=== PATIENT | male | born 1955 | race Caucasian/White ===

== ENCOUNTER 2024-08-13 09:09 | Emergency (ER) | payer MEDICARE ==
[~2024-08-13] VITALS: Ht 177.8 cm; Wt 116.6 kg
[2024-08-13] MEDS ORDERED: VERAPAMIL (09:59)
[2024-08-13] MEDS: IV NORMAL SALINE 1000 ML BAG IV ONE (10:06)
[2024-08-13 10:15] LABS: BASOPHILS # (AUTO) 0.1 K/UL (0.0-0.2); BASOPHILS % (AUTO) 0.4 % (0.0-2.0); EOSINOPHILS # (AUTO) 0.1 K/uL (0.0-0.7); EOSINOPHILS % (AUTO) 0.8 % (0.0-7.0); HEMATOCRIT 40.9 % (36.7-47.1); HEMOGLOBIN 13.8 g/dL (12.5-16.3); LYMPHOCYTES # (AUTO) 0.6 K/uL (0.8-4.8); LYMPHOCYTES % (AUTO) 5.2 % (20.5-51.5); MEAN CORPUSCULAR HGB CONC 34 g/dL (32.5-36.3); MEAN CORPUSCULAR VOLUME 88.8 fL (73.0-96.2); MONOCYTES # (AUTO) 0.4 K/uL (0.1-1.30); MONOCYTES % (AUTO) 3.3 % (0.0-11.0); NEUTROPHILS # (AUTO) 10.7 K/uL (1.8-8.9); NEUTROPHILS % (AUTO) 90.3 % (38.5-71.5); PLATELET COUNT (AUTO) 208 K/uL (152-348); RED CELL DISTRIBUTION WIDTH 14.3 % (12.1-16.2); WHITE BLOOD COUNT (AUTO) 11.9 K/uL (3.6-10.2)
[2024-08-13 10:19] LABS: DIFFERENTIAL COMMENT 1
[2024-08-13 10:22] LABS: CALCIUM 8.2 mg/dL (8.5-10.1); CARBON DIOXIDE 26 mmol/L (21-32); CHLORIDE 107 mmol/L (98-107); CREATININE 1.7 mg/dL (0.6-1.3); GLUCOSE 191 mg/dL (74-106); POTASSIUM 4.2 mmol/L (3.5-5.1); SODIUM SERUM 143 mmol/L (136-145); UREA NITROGEN, BLOOD 19 mg/dL (7-18)
[2024-08-13 10:31] LABS: ALANINE AMINOTRANSFERASE 40 U/L (16-63); ALBUMIN 3.4 g/dL (3.4-5.0); ALKALINE PHOSPHATASE 133 U/L (50-136); ASPARTATE AMINOTRANSFERASE 29 U/L (15-37); BILIRUBIN,DIRECT 0.1 mg/dL (0.0-0.2); BILIRUBIN,TOTAL 0.6 mg/dL (0.2-1.0); TOTAL PROTEIN, SERUM 7.1 g/dL (6.4-8.2)
[2024-08-13 12:47] VITALS: BP 109/67; O2SAT 99
== END 2024-08-13 12:48 | disposition home or self-care (01) ==
LOC: ER 09:09
DX: I95.9 Hypotension, unspecified (principal); E11.9 Type 2 diabetes mellitus without complications; R07.9 Chest pain, unspecified; I10 Essential (primary) hypertension; Z85.46 Personal history of malignant neoplasm of prostate; Z85.51 Personal history of malignant neoplasm of bladder; Z85.528 Personal history of other malignant neoplasm of kidney; Z87.442 Personal history of urinary calculi; Z88.5 Allergy status to narcotic agent
CPT/HCPCS: 99285; 96360; 71045; 80076; 80048; 83735; 85025; 84484; 36415; 93005; 83605; J7040; A4606; A4663